=== PATIENT | female | born 1985 | race Two or more races ===

== ENCOUNTER 2018-10-19 20:33 | Emergency (ER) | payer SELFPAY ==
[~2018-10-19] VITALS: Ht 157.5 cm; Wt 73.5 kg
[2018-10-19 20:40] VITALS: BP 146/74
[2018-10-19 21:06] LABS: BILIRUBIN,URINE NEGATIVE (NEG); CLARITY,URINE CLEAR; COLOR,URINE YELLOW; NITRITE,URINE NEGATIVE (NEG); PROTEIN,URINE NEGATIVE (NEG-TRACE); UROBILINOGEN,URINE 0.2 mg/dL (0.2 mg/dL)
[2018-10-19 21:13] LABS: BARBITURATES NEG (NEG); BENZODIAZEPINES NEG (NEG); CANNABINOIDS NEG (NEG); COCAINE NEG (NEG); METHADONE NEG (NEG); OPIATES NEG (NEG); PHENCYCLIDINE NEG (NEG)
[2018-10-19 21:16] LABS: BACTERIA,URINE FEW /HPF (0-FEW); RBC,URINE OCC /HPF (0-2); SQUAMOUS EPITHELIAL CELL,UR MOD /LPF
[2018-10-19 21:17] LABS: AMPHETAMINE/METHAMPHETAMINE NEG (NEG)
[2018-10-19] MEDS ORDERED: PROPOFOL 0 ML IV ONE ×2 (21:49→21:50)
[2018-10-19] MEDS ORDERED: fentaNYL PF VIAL 100 MCG/2 ML VIAL ONE (21:49)
[2018-10-19] MEDS ORDERED: LIDOCAINE 2% PF Vial for OR 5 ML VIAL. ONE (21:50)
[2018-10-19] MEDS ORDERED: DEXAMETHASONE SOD PHOS 20 MG/5 ML VIAL. ONE (21:50)
[2018-10-19] MEDS ORDERED: KETOROLAC 30 MG/ML INJ FOR OR. INJ ONE (21:50)
[2018-10-19] MEDS ORDERED: ONDANSETRON PF 4 MG/2 ML VIAL. ONE (21:50)
[2018-10-19 21:51] LABS: BASO # 0.1 x10^3/uL (0.0-0.2); BASO % 1 % (0-3); EOS # 0.1 x10^3/uL (0.0-0.7); EOS % 1 % (0-3); HEMATOCRIT 38.3 % (36.0-47.0); HEMOGLOBIN 13.1 g/dL (12.0-15.5); LYMPH # 2.4 x10^3/uL (1.0-4.8); LYMPH % 28 % (24-48); MEAN CORPUSCULAR HEMOGLOBIN 29 pg (25-35); MEAN CORPUSCULAR HGB CONC 34 g/dL (31-37); MEAN CORPUSCULAR VOLUME 86 fL (79-100); MONO # 0.6 x10^3/uL (0.0-1.1); MONO % 7 % (0-9); NEUT # 5.5 x10^3uL (1.8-7.7); NEUT % 64 % (31-73); PLATELET COUNT 222 x10^3/uL (140-400); RED BLOOD COUNT 4.45 x10^6/uL (3.50-5.40); RED CELL DISTRIBUTION WIDTH 14.8 % (11.5-14.5); WHITE BLOOD COUNT 8.6 x10^3/uL (4.0-11.0)
[2018-10-19] MEDS ORDERED: ROCURONIUM 50 MG/5 ML VIAL. ONE (21:56)
--- NOTE | 2018-10-19 21:56 | PHYS DOC ---
Past Medical History Past Medical History: No Pertinent History Past Surgical History: No Surgical History Alcohol Use: None Drug Use: None Adult General Chief Complaint Chief Complaint: VAGINAL BLEEDING HPI HPI Patient is a 33 year old female 4 para 2 with one miscarriage who presents today complaining of vaginal bleeding in . Patient states sometime this evening she started having brownish vaginal discharge with mild pelvic pain. Patient denies anything exacerbating or making her pain better. She states she is roughly 7 weeks but has not been seen by the PORTFOLIO CONSULTANT. Review of Systems Review of Systems Constitutional: Denies fever or chills [] Eyes: Denies change in visual acuity, redness, or eye pain [] HENT: Denies nasal congestion or sore throat [] Respiratory: Denies cough or shortness of breath [] Cardiovascular: No additional information not addressed in HPI [] GI: Reports vaginal bleeding and pelvic pain. Denies nausea, vomiting, bloody stools or diarrhea [] : Denies dysuria or hematuria [] Musculoskeletal: Denies back pain or joint pain [] Integument: Denies rash or skin lesions [] Neurologic: Denies headache, focal weakness or sensory changes [] All other systems were reviewed and found to be within normal limits, except as documented in this note. Current Medications Current Medications Current Medications Medications (Trade) Dose Ordered Sig/Jenise Start Time Stop Time Status Last Admin Dose Admin Dexamethasone Sodium Phosphate (Decadron) 20 mg STK-MED ONCE 10/19/18 21:50 10/19/18 21:51 DC Fentanyl Citrate (Fentanyl 2ml Vial) 100 mcg STK-MED ONCE 10/19/18 21:49 10/19/18 21:51 DC Glycopyrrolate (Robinul) 1 mg STK-MED ONCE 10/19/18 21:57 10/19/18 21:58 DC Ketorolac Tromethamine (Toradol For Or Only) 30 mg STK-MED ONCE 10/19/18 21:50 10/19/18 21:51 DC Lidocaine HCl (Lidocaine Pf 2% Vial) 5 ml STK-MED ONCE 10/19/18 21:50 10/19/18 21:51 DC Neostigmine Methylsulfate (Neostigmine Methylsulfate) 5 mg STK-MED ONCE 10/19/18 21:57 10/19/18 21:58 DC Ondansetron HCl (Zofran) 4 mg STK-MED ONCE 10/19/18 21:50 10/19/18 21:51 DC Propofol 0 ml @ As Directed STK-MED ONCE 10/19/18 21:50 10/19/18 21:51 DC Rocuronium [place] (Zemuron) 50 mg STK-MED ONCE 10/19/18 21:56 10/19/18 21:58 DC Allergies Allergies Allergies Coded Allergies Type Severity Reaction Last Updated Verified Sulfa (Sulfonamide Antibiotics) Allergy Unknown 10/19/18 Yes Physical Exam Physical Exam Constitutional: Well developed, well nourished, no acute distress, non-toxic appearance. [] HENT: Normocephalic, atraumatic, bilateral external ears normal, oropharynx moist, no oral exudates, nose normal. [] Eyes: PERRLA, EOMI, conjunctiva normal, no discharge. [] Neck: Normal range of motion, no tenderness, supple, no stridor. [] Cardiovascular:Heart rate regular rhythm, no murmur [] Lungs & Thorax: Bilateral breath sounds clear to auscultation [] Abdomen: Bowel sounds normal, soft, no tenderness, no masses, no pulsatile masses. [] Pelvic exam External pelvic appears normal, cervix is visualized closed no CMT, trace amount of brownish discharge in the vaginal vault. No adnexal tenderness. Skin: Warm, dry, no erythema, no rash. [] Back: No tenderness, no CVA tenderness. [] Extremities: No tenderness, no cyanosis, no clubbing, ROM intact, no edema. [] Neurologic: Alert and oriented X 3, normal motor function, normal sensory function, no focal deficits noted. [] Psychologic: Affect normal, judgement normal, mood normal. [] Current Patient Data Vital Signs Vital Signs Date Time Temp Pulse Resp B/P (MAP) Pulse Ox O2 Delivery O2 Flow Rate FiO2 10/19/18 20:40 98.8 106 18 146/74 (98) 98 Room Air 98.8 Lab Values Laboratory Tests Test 10/19/18 20:35 10/19/18 20:50 10/19/18 21:25 Urine Collection Type Unknown Urine Color Yellow Urine Clarity Clear Urine pH 7.0 Urine Specific [place] 1.020 Urine Protein Negative mg/dL (NEG-TRACE) Urine Glucose (UA) Negative mg/dL (NEG) Urine Ketones (Stick) Trace mg/dL (NEG) Urine Blood Small (NEG) Urine Nitrite Negative (NEG) Urine Bilirubin Negative (NEG) Urine Urobilinogen Dipstick 0.2 mg/dL (0.2 mg/dL) Urine Leukocyte Esterase Negative (NEG) Urine RBC Occ /HPF (0-2) Urine WBC 1-4 /HPF (0-4) Urine Squamous Epithelial Cells Mod /LPF Urine Bacteria Few /HPF (0-FEW) Urine Mucus Marked /LPF Urine Opiates Screen Neg (NEG) Urine Methadone Screen Neg (NEG) Urine Barbiturates Neg (NEG) Urine Phencyclidine Screen Neg (NEG) Urine Amphetamine/Methamphetamine Neg (NEG) Urine Benzodiazepines Screen Neg (NEG) Urine Cocaine Screen Neg (NEG) Urine Cannabinoids Screen Neg (NEG) Urine Ethyl Alcohol Neg (NEG) POC Urine HCG, Qualitative Hcg positive (Negative) White Blood Count 8.6 x10^3/uL (4.0-11.0) Red Blood Count 4.45 x10^6/uL (3.50-5.40) Hemoglobin 13.1 g/dL (12.0-15.5) Hematocrit 38.3 % (36.0-47.0) Mean Corpuscular Volume 86 fL (79-100) Mean Corpuscular Hemoglobin 29 pg (25-35) Mean Corpuscular Hemoglobin Concent 34 g/dL (31-37) Red Cell Distribution Width 14.8 % (11.5-14.5) H Platelet Count 222 x10^3/uL (140-400) Neutrophils (%) (Auto) 64 % (31-73) Lymphocytes (%) (Auto) 28 % (24-48) Monocytes (%) (Auto) 7 % (0-9) Eosinophils (%) (Auto) 1 % (0-3) Basophils (%) (Auto) 1 % (0-3) Neutrophils # (Auto) 5.5 x10^3uL (1.8-7.7) Lymphocytes # (Auto) 2.4 x10^3/uL (1.0-4.8) Monocytes # (Auto) 0.6 x10^3/uL (0.0-1.1) Eosinophils # (Auto) 0.1 x10^3/uL (0.0-0.7) Basophils # (Auto) 0.1 x10^3/uL (0.0-0.2) Maternal Serum HCG Beta Subunit 4558 mIU/mL (0-5) H Sodium Level 132 mmol/L (136-145) L Potassium Level 3.4 mmol/L (3.5-5.1) L Chloride Level 102 mmol/L (98-107) Carbon Dioxide Level 25 mmol/L (21-32) Anion Gap 5 (6-14) L Blood Urea Nitrogen 11 mg/dL (7-20) Creatinine 0.7 mg/dL (0.6-1.0) Estimated GFR (Cockcroft-Gault) 95.2 BUN/Creatinine Ratio 16 (6-20) Glucose Level 115 mg/dL (70-99) H Calcium Level 9.2 mg/dL (8.5-10.1) Total Bilirubin 0.5 mg/dL (0.2-1.0) Aspartate Amino Transferase (AST) 17 U/L (15-37) Alanine Aminotransferase (ALT) 34 U/L (14-59) Alkaline Phosphatase 64 U/L (46-116) Total Protein 7.1 g/dL (6.4-8.2) Albumin 3.6 g/dL (3.4-5.0) Albumin/Globulin Ratio 1.0 (1.0-1.7) Ethyl Alcohol Level < 10 mg/dL (0-10) Laboratory Tests 10/19/18 21:25 Laboratory Tests 10/19/18 21:25 Microbiology 10/19/18 Wet Prep - Final, Complete EKG EKG [] Radiology/Procedures Radiology/Procedures []PROCEDURE: OB <14 WKS W/TV OB <14 WKS W/TV Clinical Indication: SPOTTING CRAMPING X 1 DAY. BETA 4558 Comparison: None. TECHNIQUE: Real-time ultrasound imaging of the pelvis using transabdominal and transvaginal window is performed. Findings: Anteverted uterus. Uterus measures 9.5 x 7 x 5.1 cm. Cervix length is 4.7 cm. 1.3 cm area of hypoechogenicity in the left upper uterus myometrium could be a small fibroid. This is not definitive. Normal blood flow in the maternal ovaries. Small area of hyperechogenicity is noted in the left ovary of uncertain significance. Suggest attention on follow-up. The ovaries are symmetric in size. There is intrauterine gestational sac. Contour is smooth. No perigestational hemorrhage. A 1 mm yolk sac is identified. A pole is not seen. Gestational sac diameter 0.8 cm, 5 weeks and 4 days. EDC ultrasound is 06/17/2018. No cul-de-sac free fluid is seen. IMPRESSION: 1. There is a possible intrauterine gestational sac containing a tiny yolk sac. A pole is not identified. Estimated sonographic gestational age is 5 weeks and 4 days. Suggest serial quantitative beta hCG. 2. Question small left uterine fibroid. Electronically signed by: Chilo Villar MD (10/19/2018 11:04 PM) [facility] DICTATED and SIGNED BY: CHILO VILLAR MD DATE: 10/19/18 4604 Course & Med Decision Making Course & Med Decision Making Pertinent Labs and Imaging studies reviewed. (See chart for details) This is a 33-year-old female patient presenting to the ED today complaining of vaginal bleeding in as well as pelvic pain that began this evening. She states she is currently 7 weeks . On physical exam patient has trace amount of brownish discharge in the vaginal vault consistent with spotting. Positive urine hCG, beta-hCG 4558, hemoglobin and hematocrit are normal. CMP with no acute findings. Urine analysis is negative for infection. Wet prep noted for BV. We'll discharge with Flagyl. Blood group O+ OB ultrasound There is a possible intrauterine gestational sac containing a tiny yolk sac. A pole is not identified. Estimated sonographic gestational age is 5 weeks and 4 days. Suggest serial quantitative beta hCG. Question small left uterine fibroid. Results are communicated to patient. Pelvic rest recommended. Follow up with OB/ CUP TRIMMING MACHINE OPERATOR in the next 2 days for serial beta hCG. Provided return precautions and discharged in stable condition. Dragon Disclaimer Dragon Disclaimer This electronic medical record was generated, in whole or in part, using a voice recognition dictation system. Departure Departure Impression: Primary Impression: Threatened Additional Impression: Bacterial vaginosis Disposition: HOME, SELF-CARE Condition: STABLE Referrals: NO PCP (PCP) XI VALDIVIA MD Follow-up with your PORTFOLIO CONSULTANT in 2 days for serial beta hCG Patient Instructions: Bacterial Vaginosis, [id number], Threatened Miscarriage , [id number] Additional Instructions: You were evaluated in the emergency room for vaginal bleeding in . Please maintain pelvic rest, no sex, no strenuous activities until the bleeding has stopped and you have been seen by the PORTFOLIO CONSULTANT. You also have bacterial vaginosis. Take the prescribed medications as ordered. Have your OB/ CUP TRIMMING MACHINE OPERATOR do serial beta hCGs in the next 2 days. Your current beta hCG is 4558. Please come back to the emergency room at any point symptoms worsen. Scripts Metronidazole (FLAGYL) 500 Mg Tablet 1 TAB PO BID, #14 TAB Prov: HECTOR YODER APRN 10/19/18 Problem Qualifiers HECTOR YODER APRN Oct 19, 2018 21:56
[2018-10-19] MEDS ORDERED: NEOSTIGMINE METHYLSULFATE 5 MG/5 ML SYRINGE. ONE (21:57)
[2018-10-19] MEDS ORDERED: GLYCOPYRROLATE 1 MG/5 ML VIAL. ONE (21:57)
[2018-10-19 22:34] LABS: CALCIUM 9.2 mg/dL (8.5-10.1); CREATININE 0.7 mg/dL (0.6-1.0); GFR 95.2; POTASSIUM 3.4 mmol/L (3.5-5.1)
[2018-10-19 22:50] LABS: ALBUMIN 3.6 g/dL (3.4-5.0); TOTAL BILIRUBIN 0.5 mg/dL (0.2-1.0); TOTAL PROTEIN 7.1 g/dL (6.4-8.2)
--- NOTE | 2018-10-19 23:08 | RAD ---
OB <14 WKS W/TV Clinical Indication: SPOTTING CRAMPING X 1 DAY. BETA 4558 Comparison: None. TECHNIQUE: Real-time ultrasound imaging of the pelvis using transabdominal and transvaginal window is performed. Findings: Anteverted uterus. Uterus measures 9.5 x 7 x 5.1 cm. Cervix length is 4.7 cm. 1.3 cm area of hypoechogenicity in the left upper uterus myometrium could be a small fibroid. This is not definitive. Normal blood flow in the maternal ovaries. Small area of hyperechogenicity is noted in the left ovary of uncertain significance. Suggest attention on follow-up. The ovaries are symmetric in size. There is intrauterine gestational sac. Contour is smooth. No perigestational hemorrhage. A 1 mm yolk sac is identified. A pole is not seen. Gestational sac diameter 0.8 cm, 5 weeks and 4 days. EDC ultrasound is 06/17/2018. No cul-de-sac free fluid is seen. IMPRESSION: 1. There is a possible intrauterine gestational sac containing a tiny yolk sac. A pole is not identified. Estimated sonographic gestational age is 5 weeks and 4 days. Suggest serial quantitative beta hCG. 2. Question small left uterine fibroid. Electronically signed by: Chilo Golden MD (10/19/2018 11:04 PM) [facility]
[2018-10-19] MEDS ORDERED: METR500T PO (23:30)
[2018-10-22 13:19] LABS: GC PROBE Negative (Negative)
== END 2018-10-19 23:40 | disposition home or self-care (01) ==
LOC: ER 20:33
DX: O20.0 Threatened abortion (principal); O23.591 Infection of other part of genital tract in pregnancy, first trimester; Z88.2 Allergy status to sulfonamides; Z3A.01 Less than 8 weeks gestation of pregnancy
CPT/HCPCS: 36415; 76801; 76817; 80053; 80307; 81001; 81025; 84702; 85025; 86850; 86900; 86901; 87491; 87591; 99284; G0480; Q0111; J1100; J1885; J2001; J2405; J2704; J2710; J3010; J3490

== ENCOUNTER → 2018-10-26 | Outpatient (CLI) | payer SELFPAY ==
[2018-10-19 20:40] VITALS: BP 146/74
[~2018-10-26] MED LIST: METR500T PO
--- NOTE | 2018-10-26 12:28 | RAD ---
Obstetrical ultrasound, 10/19/2018: HISTORY: Vaginal bleeding, Transabdominal and transvaginal scans were obtained. The uterus was best delineated on the transvaginal scanning. The central uterine echo complex measures 8 mm in AP dimension. There is a tiny 4-5 mm cystic structure related to the endometrium. This does not have the typical echogenic rim of a gestational sac. A larger 1 cm cystic structure (probable gestational sac) which was seen within the central uterine cavity on the 10/19/2018 exam is no longer evident. No enlarging intrauterine fluid collection is seen to suggest a viable gestational sac. The myometrium is mildly heterogeneous. A 1.2 cm hypoechoic area is seen in the myometrium anteriorly, perhaps representing a small fibroid. The ovaries are of normal size. There is blood flow in the ovaries. No adnexal mass is seen. No free fluid is evident in the pelvis. IMPRESSION: 1. The previously seen probable intrauterine gestational sac is no longer evident, most likely representing a spontaneous . 2. No adnexal abnormality is detected. 3. Correlation with serial hCG titers is suggested. Electronically signed by: Naseem Negrete MD (10/26/2018 12:24 PM) [facility]
--- NOTE | 2018-10-26 19:18 | PDOC ---
GENERAL General: 36 yrs old Lady came to [facility] ER for Vaginal Bleeding. She is has had BTL and one and GB surgery. Pt transfered here at [facility] for D&C. ALLERGIES Allergies: Allergies Coded Allergies Type Severity Reaction Last Updated Verified Sulfa (Sulfonamide Antibiotics) Allergy Unknown 10/19/18 Yes ASSESSMENT & PLAN A&P Pt hs excessive Vagina Bleeding.History of Endometriosis. Uterus Enlarged and Tender on Pelvic Exam. Under GA D&C done. EBL 75cc. DEWAYNE TERRAZAS MD Oct 26, 2018 19:18
== END | disposition home or self-care (01) ==
LOC: US 10:58
PROVIDERS: ATTEND Obstetrics & Gynecology
DX: O46.91 Antepartum hemorrhage, unspecified, first trimester (principal); Z3A.01 Less than 8 weeks gestation of pregnancy
CPT/HCPCS: 76805; 76817